=== PATIENT | male | born 1980 | race Caucasian/White ===

== ENCOUNTER 2022-06-03 12:49 | Emergency (ER) | payer OTHER, SELFPAY ==
[2022-06-03 12:58] VITALS: BP 111/69; PULSE 109; RESP 20; TEMP 37.5; O2SAT 94
--- NOTE | 2022-06-03 13:58 | W.ED.GENAD ---
Discharge Plan Disposition Patient Disposition: Home Condition: Good Discharge Details Clinical Impression: COVID-19 Primary Care Provider: None,None ED Provider: Subha Oscar Discharge Instructions Instructions: COVID-19 (Coronavirus Disease 2019) (ED) Additional Instructions: Your testing was positive for COVID today. Your exam however is reassuring with no evidence to suggest bacterial pneumonia. Your heart rate and oxygen were within normal limits. If you develop chest pain, shortness of breath, inability to hydrate or other new/worsening symptom please seek care urgently once again. Otherwise, please continue to quarantine. Encourage hydration. Can use Tylenol and ibuprofen as needed for discomfort or fevers. Please follow-up with primary care for reevaluation in 2 weeks. Stand Alone Forms: Work Release Discharge Data Discharge Date/Time-TO BE ENTERED AT DEPARTURE: 06/03/22 15:13 Medical Decision Making Patient is a pleasant 42-year-old male, otherwise healthy, with chief complaint of fevers, chills and general malaise. Patient is not vaccinated against flu or COVID. He states that it began yesterday. Daughter is sick as well. States he did T-max of 106 ?F yesterday. Responded well to Tylenol. Has not taken any as of today. Has been trying to hydrate. Denies any history of respiratory illness. No chest pain or shortness of breath. Denies any GI upset. On exam, patient appears nontoxic. His lungs are clear, normal HEENT exam. Slightly tachycardic when he first came in at 109. His temp was initially elevated slightly at 37.5 but this is now down to 37.3. His history and exam is most consistent with influenza. Will perform a rapid flu and COVID test as he would be eligible for flu treatment. Patient is COVID-positive. He does not meet indication for pack Slo-Bid or other treatment. Heart rate is now down to 80. He is resting comfortably with no respiratory distress. Advised him to continue to quarantine. We discussed supportive care. Strict return precautions were discussed. Advise follow-up with primary care in 2 weeks for reevaluation. All questions and concerns were addressed and he is in agreement this plan. HPI General Date/Time Provider Initiated Documentation: 06/03/22 13:58. Limitations to Documentation: no limitations. Information obtained by: patient and RN notes reviewed. History of Present Illness 42 year old M presents to the emergency department with the chief complaint of fever, general malaise, described as moderate, Quality is described as aching (describes general body aches), Patient started experiencing this day(s) (1) and it has been constant. No relieving factors improve symptom(s), No exacerbating factors reported . Patient notes fever/chills, loss of appetite and malaise; denies chest pain, cough, headaches, nausea/vomiting, rash and shortness of breath. Patient did receive the following treatments prior to arrival, NSAID General Stated Complaint: RespSymp SILVER: 3 Review of Systems Constitutional Constitutional: Reports as per HPI and Denies headache(s) Eyes Eyes: Reports as per HPI, Denies eye discharge and Denies irritation ENT Ears, Nose, Mouth, and Throat: Reports as per HPI and Denies headache(s) Cardiovascular Cardiovascular: Reports as per HPI, Denies chest pain and Denies dyspnea Respiratory Respiratory: Reports as per HPI and Denies dyspnea Gastrointestinal Gastrointestinal: Reports as per HPI, Denies abdominal pain, Denies change in bowel habits, Denies nausea and Denies vomiting Integumentary/Breasts Skin/Breast: Reports as per HPI and Denies rash Neurologic Neurologic: Reports as per HPI and Denies headache(s) PFSH All Active Problems (Updated 06/03/22 @ 14:57 by JEROME Cowart) COVID-19 (Acute) Social History Smoking risk assessment performed?: No Exam Const General: cooperative, healthy appearing, comfortable, no acute distress, well developed and well groomed Nutritional Appearance: average body habitus and well nourished Orientation: alert and awake [facility] Head: normal to inspection, normocephalic and atraumatic Ears: hearing grossly normal bilaterally, external ears normal and TM's normal bilaterally General nose exam: external nose normal and nares normal Face and sinus: normal facial exam, sinuses nontender and face symmetric Mouth: oral mucosae normal, lip normal, tongue normal, oropharynx normal and moist mucous membranes Teeth and gingiva: dentition normal Throat: posterior oropharynx normal, tonsils normal and uvula midline Eyes General: appearance normal, both eyes and all related structures Neck Neck: normal visual inspection, full ROM, no lymphadenopathy and no meningeal signs Resp Effort & Inspection: normal respiratory effort, able to speak in complete sentences and no respiratory distress Auscultation: clear to auscultation bilaterally, no rales, no rhonchi and no wheezes Cardio Rate: regular rate Rhythm: regular rhythm Heart Sounds: S1 normal and S2 normal Skin General skin exam: no rashes or lesions noted Neuro General: patient alert and patient awake Cognition: normal cognition Speech: speech normal Gait: normal gait Psych Appearance: grossly normal and well kempt Mental Status: mental status grossly normal Speech and Movement: speech and movement normal Course Vital Signs Vital signs: Vital Signs Temperature 37.5 C 06/03/22 12:58 Pulse 109 H 06/03/22 12:58 Respiratory Rate 20 06/03/22 12:58 Blood Pressure 111/69 06/03/22 12:58 Pulse Oximetry 94 06/03/22 12:58 Temperature 37.5 C 06/03/22 12:58 Temperature Source Oral 06/03/22 12:58 Pulse 109 H 06/03/22 12:58 Respiratory Rate 20 06/03/22 12:58 Blood Pressure 111/69 06/03/22 12:58 Blood Pressure Position Sitting 06/03/22 12:58 Pulse Oximetry 94 06/03/22 12:58 Oxygen Delivery Method Room Air 06/03/22 12:58 Oxygen Flow Rate 0 06/03/22 12:58 Pain Level 0 06/03/22 12:58
== END 2022-06-03 15:13 | disposition home or self-care (01) ==
PROVIDERS: Emergency Provider Physician Assistant
DX: U07.1 COVID-19 (principal); Z28.310 Unvaccinated for COVID-19
CPT/HCPCS: 99282; 99283